=== PATIENT | female | born 1935 | race Caucasian/White ===

== ENCOUNTER → 2016-12-30 | Outpatient (CLI) | payer MEDICARE, MEDICAID ==
[~2016-12-30] MED LIST: AC325T PO; ACET650S13 PO; ACET650S15 PR; ACHD5005 PO; ALLP100T PO; AMLO5TAB2 PO; ASCO500T20 PO; ASP81CT PO; BSP10T PO; CARB1TAB22 PO; CHOL10002 PO; CITA10TA PO; CLON1TAB69 PO; DIVA125C3 PO; DOCU100C PO; DVL125C PO; FOLI1TAB6 PO; GUAI240S10 PO; LEVO750T6 PO; LORA0.5T34 PO; LORA10TA7 PO; LORA1TAB PO; LRZ1T PO; LVCR25100 PO; MULT1CAP27 PO; NF-LOVAZAC PO; OLAN2.5T19 PO; OLN2.5T PO; OMEG1CAP58 PO; OMG1KC PO; PROP10TA8 PO; PROP20TA5 PO; RIVA3CAP3 PO; RNT150T PO; ROPI0.5T2 PO; RPN.25T PO; SIMV10TA3 PO; SIMV20TA3 PO; SULF1TAB34 PO; TMSL.4C PO
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
[2016-12-30 13:12] LABS: BILIRUBIN,URINE NEGATIVE (NEGATIVE); KETONES,URINE NEGATIVE (NEGATIVE); LEUKOCYTE ESTERASE ,URINE 1+ (NEGATIVE); NITRITE,URINE POSITIVE (NEGATIVE); PH,URINE 5 (5-9); PROTEIN,URINE NEGATIVE (NEGATIVE); UROBILINOGEN,URINE NORMAL (NORMAL)
[2016-12-30 13:20] LABS: SQUAMOUS EPITHELIAL CELL,UR RARE /HPF
== END ==
PROVIDERS: ATTEND Internal Medicine
DX: R50.9 Fever, unspecified (principal); R82.90 Unspecified abnormal findings in urine
CPT/HCPCS: 81000; 87077; 87088; 87186; 87804

== ENCOUNTER 2017-01-03 07:58 | Emergency (ER) | payer MEDICARE, MEDICAID ==
[~2017-01-03] VITALS: Ht 160 cm; Wt 68.0 kg
--- NOTE | 2017-01-03 08:53 | Diagnostic Imaging Report ---
INDICATION: Left hip injury from a fall 2 views of the left hip show no fracture, dislocation or other acute abnormalities. IMPRESSION: Negative left hip. Dictated by: Dictated on workstation # [id number]
--- NOTE | 2017-01-03 08:54 | Diagnostic Imaging Report ---
INDICATION: Injury from falling out of a wheelchair. EXAMINATION: AP view pelvis The pelvic ring appears to be intact. Hips appear to be intact. There is some joint space narrowing in both hips slightly worse on the right than on the left. There is no acute fracture seen. IMPRESSION: No acute abnormalities in the pelvis. Dictated by: Dictated on workstation # [id number]
--- NOTE | 2017-01-03 08:58 | Diagnostic Imaging Report ---
PROCEDURE: CT head and CT cervical spine without contrast. TECHNIQUE: Multiple contiguous axial images were obtained through the brain and cervical spine without the use of intravenous contrast. Sagittal and coronal reformations through the cervical spine were then performed. INDICATION: Fall. Bruising to the right eye and right side of face. COMPARISON: 05/13/2015 FINDINGS: CT head: The ventricles and cortical sulci are diffusely prominent, compatible with age-related volume loss. There are confluent areas of abnormal, low attenuation in the periventricular white matter. This is consistent with chronic small vessel ischemic changes. Note is also made of multiple bilateral small basal ganglia lacunar infarcts. Overall, appearance does appear to have progressed when compared to prior exam. There is no midline shift or mass-effect. No acute intra-axial hemorrhage is seen. There are no abnormal areas of increased or decreased density to suggest acute hemorrhage or edema. No extra-axial masses or collections are present. The bony calvarium is intact. The visualized paranasal sinuses are unremarkable. The mastoid air cells are clear. CT cervical spine: There is straightening of normal lordotic curvature of the cervical spine. Findings may be on the basis of spasming or positioning. There is no significant anteroretrolisthesis. There is no evidence of jumped facets. Vertebral body heights are maintained. There is no evidence of acute fracture. No bony fragments are seen within the spinal canal. There are multilevel degenerative changes consisting of intervertebral disc height loss with anterior posterior disc osteophyte complex formations. These changes appear greatest at the C5-C6 level. Pre-and paravertebral soft tissue structures are unremarkable. Included portions of the lung apices are clear. IMPRESSION: 1. No acute intracranial abnormality. No CT evidence of mass, acute infarct or intracranial hemorrhage. 2. Bilateral small lacunar infarcts and chronic small vessel ischemic changes in deep white matter. Again, overall appearance appears to have progressed when compared to prior exam. 3. No CT evidence of acute fracture or dislocation of the cervical spine. 4. Multilevel degenerative changes of the cervical spine, which again appear greatest at C5-C6 level. Dictated by: Dictated on workstation # [id number]
--- NOTE | 2017-01-03 09:18 | ED Trauma-Multisystem ---
General Chief Complaint: Trauma-Non Activation Stated Complaint: FALL Nursing Triage Note: PT ARRIVED PER EMS, PT FELL OUT OF W/C AT NH. NO LOC NH REPORTS DROWSY,SLOW TO FOLLOW COMMANDS. PT CO OF FARMER AND L HIP PAIN TO NH. CO OF FARMER TO ED STAFF AND HAS ABRASION TO L KNEE. CLEANED AND BANDAID APPLIED Source of Information: Family Exam Limitations: No Limitations History of Present Illness Time Seen by Provider: 09:13 Initial Comments The patient is an 81-year-old residential patient. She is demented and non- ambulatory. She does stand to transfer to a wheelchair and spends her day in the wheelchair. This morning she fell while make this transfer. She apparently struck her forehead and also her left knee. She complains of left hip pain. She apparently fell last Sunday as well and has an eschar over her mid nose and a small ecchymosis at the nasal border of her right eye. Location Injury Occurred: NH Occurred: Just Prior to Arrival Pain/Injury Location: Face, Pelvis Method of Injury: Fall Allergies and Home Medications Allergies Coded Allergies: streptomycin (Unverified Allergy, Mild, 11/25/08) Home Medications Acetaminophen 325 Mg Tablet 650 MG PO Q4H PRN PRN PAIN/ELEVATED TEMP (Reported) TAKE 2 (325MG) NEEDED FOR PAIN/ELEVATED TEMP Acetaminophen 650 Mg Supp.rect 650 MG PA Q4H PRN PRN ELEVATED TEMPERATURE ( Reported) NEEDED FOR ELEVATED TEMPERATURE Ascorbic Acid 500 Mg Tablet 500 MG PO DAILY (Reported) Aspirin 81 Mg Chew 81 MG PO DAILY (Reported) Buspirone Hcl 10 Mg Tablet 10 MG PO QID (Reported) Cholecalciferol 1,000 Unit Tab 1,000 UNIT PO DAILY (Reported) Citalopram Hydrobromide 10 Mg Tablet 10 MG PO HS (Reported) Docusate Sodium 100 Mg Capsule 100 MG PO DAILY (Reported) Guaifenesin/D-Methorphan Hb 240 Ml Syrup 10 ML PO Q6H PRN PRN COUGH (Reported) 100-10MG/5ML NEEDED FOR COUGH Hydrocodone Bit/Acetaminophen 1 Tab Tab #60 1 TAB PO Q4H PRN PRN pain Prescribed by: LOVE TONEY on 05/08/14 0731 Levodopa/Carbidopa 1 Ea Tab 1 TAB PO QID (Reported) 25-100MG TABLET Loratadine 10 Mg Tablet 10 MG PO DAILY PRN PRN EXCESSIVE SECRETIONS (Reported) NEEDED FOR EXCESSIVE SECRETIONS Lorazepam 0.5 Mg Tablet 0.5 MG PO Q8H PRN PRN ANXIETY (Reported) NEEDED FOR ANXIETY Lorazepam 1 Mg Tab 1 MG PO BID (Reported) GIVE 1 TABLET FOR ANXIETY STATE Multivitamins 1 Each Capsule 1 TAB PO DAILY (Reported) Olanzapine 2.5 Mg Tablet 2.5 MG PO BID (Reported) [place] 3 Polyunsat Fatty Acids 1,000 Mg Cap 2,000 MG PO HS (Reported) TAKE 2 (1000MG) CAPSULE Propranolol Hcl 20 Mg Tablet 20 MG PO TID (Reported) HOLD FOR SBP <95 OR PULSE <55 Ranitidine Hcl 150 Mg Tablet 150 MG PO DAILY (Reported) Rivastigmine Tartrate 3 Mg Capsule 3 MG PO BID (Reported) Ropinirole Hcl 0.5 Mg Tablet 0.5 MG PO TID (Reported) Simvastatin 10 Mg Tablet 10 MG PO HS (Reported) Sulfamethoxazole/Trimethoprim 1 Each Tablet 1 EACH PO MON,SUN,SUN (Reported) 400-80MG TABLET Tamsulosin Hcl 0.4 Mg Cap 0.4 MG PO DAILY (Reported) Constitutional: weakness Eyes: No Symptoms Reported Ears: No Symptoms Reported Nose: No Symptoms Reported Mouth: No Symptoms Reported Throat: No Symptoms to Report Respiratory: no symptoms reported Cardiovascular: No Symptoms Reported Gastrointestinal: no symptoms reported Genitourinary: no symptoms reported Musculoskeletal: see HPI Skin: no symptoms reported Psychiatric/Neurological: No Symptoms Reported Past Anrvfdg-Sztcfz-Lktdte Hx Patient Social History Alcohol Use: Denies Use Recreational Drug Use: No Smoking Status: Never a Smoker Recent Foreign Travel: No Contact w/Someone Who Travel: No Recent Infectious Disease Expo: No Recent Hopitalizations: No Immunizations Up To Date Tetanus Booster (TDap): Less than 5yrs PED Vaccines UTD: No Date of Pneumonia Vaccine: Aug 20, 2013 Date of Influenza Vaccine: Jul 27, 2011 Surgeries HX Surgeries: Yes Respiratory Hx Respiratory Disorders: No Cardiovascular Hx Cardiac Disorders: Yes (HYPERLIPIDEMIA) Neurological Hx Neurological Disorders: Yes Reproductive System Hx Reproductive Disorders: No Sexually Transmitted Disease: No HIV/AIDS: No Female Reproductive Disorders: Denies Genitourinary Hx Genitourinary Disorders: Yes (INCONTINENCE/FREQUENCY) Gastrointestinal Hx Gastrointestinal Disorders: Yes Gastrointestinal Disorders: Chronic Constipation Musculoskeletal Hx Musculoskeletal Disorders: Yes (ARTHRITIS/GOUT) Musculoskeletal Disorders: Arthritis, Gout Endocrine Hx Endocrine Disorders: Yes (HYPOGLYCEMIA) HEENT HX ENT Disorders: No Cancer Hx Cancer: No Psychosocial Hx Psychiatric Problems: Yes (PARANOID SCHIZO) Behavioral Health Disorders: Anxiety, Schizophrenia, Depression Integumentary HX Skin/Integumentary Disorder: No Blood Transfusions Hx Blood Disorders: No Adverse Reaction to a Blood Tr: No Family Medical History Family Medial History: Patient reports no known family medical history. Physical Exam Vital Signs Vital Sign - Last 12Hours 01/03/17 08:00 Temp 99.1 Pulse 73 Resp 18 B/P 107/62 Pulse Ox 96 O2 Delivery Room Air Temperature (Fahrenheit): 99.1 General Appearance: No Apparent Distress WD/WN Head: Other (hematoma without color over the right brow. It is tender to touch. There is an abrasion with eschar in the mid nose. There is a small ecchymosis at the nasal border of the right eye) Eyes: Bilateral Eye Normal Inspection Ears, Nose, Throat: Hearing Grossly Normal Neck: Normal Inspection Cardiovascular: Regular Rate, Rhythm No Edema No Gallop No JVD No Murmur Normal Peripheral Pulses Respiratory: Chest Non Tender Lungs Clear Normal Breath Sounds No Accessory Muscle Use No Respiratory Distress Gastrointestinal: Normal Bowel Sounds No Organomegaly No Pulsatile Mass Non Tender Soft Back: Normal Inspection Extremity: Other Neurologic/Psychiatric: Alert Melvina Coma Score Best Eye Response (Melvina): (4) Open Spontaneously Best Verbal Response (Melvina): (5) Oriented Best Motor Response (Melvina): (6) Obeys Commands Progress/Results/Core Measures Results/Orders My Orders Orders-GABI GHOSH MD Ct Head/Cervical Spine Wo (01/03/17 08:19) Pelvis (01/03/17 08:19) Hip, Left, 2 Views (01/03/17 08:19) Vital Signs/I&O Vital Sign - Last 12Hours 01/03/17 08:00 Temp 99.1 Pulse 73 Resp 18 B/P 107/62 Pulse Ox 96 O2 Delivery Room Air Blood Pressure Mean: 77 Departure Communication Progress Notes CT scan of the head shows lacunar infarcts which appeared to have progressed since the previous CT. No new abnormalities are noted. The pelvis and left hip are negative for fractures. The cervical spine on CT shows advanced arthritic abnormalities but no acute injury. Impression Impression: Primary Impression: fall Additional Impression: brow hematoma Disposition: 01 HOME, SELF-CARE Condition: Stable/Unchanged Departure-Patient Inst. Referrals: LOVE TONEY MD (PCP/Family) Primary Care Physician Patient Instructions: Minor Head Injury (DC) Add. Discharge Instructions: All discharge instructions reviewed with patient and/or family. Voiced understanding. Observe for change in level of consciousness. The patient should have help in transferring from bed to wheelchair GABI GHOSH MD Jan 03, 2017 09:18
[2017-01-03 09:34] VITALS: BP 110/62
== END 2017-01-03 09:34 | disposition home or self-care (01) ==
LOC: EDUNIT# 07:58 → ER 08:00
DX: S00.83XA Contusion of other part of head, initial encounter (principal); S80.212A Abrasion, left knee, initial encounter; M47.812 Spondylosis without myelopathy or radiculopathy, cervical region; F03.90 Unspecified dementia, unspecified severity, without behavioral disturbance, psychotic disturbance, mood disturbance, and anxiety; Z79.82 Long term (current) use of aspirin; Z79.899 Other long term (current) drug therapy; W05.0XXA Fall from non-moving wheelchair, initial encounter; Y92.129 Unspecified place in nursing home as the place of occurrence of the external cause; Y99.8 Other external cause status
CPT/HCPCS: 70450; 72125; 72170; 73502; 99283

== ENCOUNTER → 2019-01-03 | Outpatient (CLI) | payer MEDICARE, MEDICAID ==
[2019-01-03 19:17] LABS: BILIRUBIN,URINE NEGATIVE (NEGATIVE); CLARITY,URINE CLEAR; COLOR,URINE YELLOW; GLUCOSE, URINE (UA) NEGATIVE (NEGATIVE); KETONES,URINE NEGATIVE (NEGATIVE); LEUKOCYTE ESTERASE ,URINE 3+ (NEGATIVE); NITRITE,URINE NEGATIVE (NEGATIVE); PH,URINE 6 (5-9); PROTEIN,URINE NEGATIVE (NEGATIVE); UROBILINOGEN,URINE NORMAL (NORMAL)
[2019-01-03 19:32] LABS: BACTERIA,URINE TRACE /HPF; RBC,URINE RARE /HPF
== END ==
PROVIDERS: ATTEND Internal Medicine
DX: M62.81 Muscle weakness (generalized) (principal); R82.998 Other abnormal findings in urine; Z87.440 Personal history of urinary (tract) infections
CPT/HCPCS: 81000; 87088

== ENCOUNTER 2019-08-07 10:42 | Emergency (ER) | payer MEDICARE, MEDICAID ==
[~2019-08-07] VITALS: Ht 167 cm; Wt 81.0 kg
--- NOTE | 2019-08-07 10:55 | ED General ---
General Chief Complaint: Altered Mental Status Stated Complaint: "NOT ACTING RIGHT" Source of Information: EMS Exam Limitations: No Limitations History of Present Illness Date Seen by Provider: Aug 07, 2019 Time Seen by Provider: 10:54 Initial Comments To ER per EMS from local [facility] with reports of behavioral changes. There was questionable right facial droop. Slurred speech but [facility] staff reports that the slurred speech is her baseline. Severity: Mild Associated Systoms: Denies Symptoms Allergies and Home Medications Allergies Coded Allergies: streptomycin (Unverified Allergy, Mild, 11/25/08) Home Medications Acetaminophen 325 Mg Tablet, 650 MG PO Q4H PRN for PAIN/ELEVATED TEMP, (Repo rted) TAKE 2 (325MG) NEEDED FOR PAIN/ELEVATED TEMP Acetaminophen 650 Mg Supp.rect, 650 MG PA Q4H PRN for ELEVATED TEMPERATURE, (Reported) NEEDED FOR ELEVATED TEMPERATURE Ascorbic Acid 500 Mg Tablet, 500 MG PO DAILY, (Reported) Aspirin 81 Mg Chew, 81 MG PO DAILY, (Reported) Buspirone Hcl 10 Mg Tablet, 10 MG PO QID, (Reported) Cholecalciferol 1,000 Unit Tab, 1,000 UNIT PO DAILY, (Reported) Citalopram Hydrobromide 10 Mg Tablet, 10 MG PO HS, (Reported) Docusate Sodium 100 Mg Capsule, 100 MG PO DAILY, (Reported) Guaifenesin/D-Methorphan Hb 240 Ml Syrup, 10 ML PO Q6H PRN for COUGH, (Reported) 100-10MG/5ML NEEDED FOR COUGH Hydrocodone Bit/Acetaminophen 1 Tab Tab, 1 TAB PO Q4H PRN for pain Prescribed by: LOVE TONEY on 05/08/14 0731 Levodopa/Carbidopa 1 Ea Tab, 1 TAB PO QID, (Reported) 25-100MG TABLET Loratadine 10 Mg Tablet, 10 MG PO DAILY PRN for EXCESSIVE SECRETIONS, (Reported) NEEDED FOR EXCESSIVE SECRETIONS Lorazepam 0.5 Mg Tablet, 0.5 MG PO Q8H PRN for ANXIETY, (Reported) NEEDED FOR ANXIETY Lorazepam 1 Mg Tab, 1 MG PO BID, (Reported) GIVE 1 TABLET FOR ANXIETY STATE Multivitamins 1 Each Capsule, 1 TAB PO DAILY, (Reported) Olanzapine 2.5 Mg Tablet, 2.5 MG PO BID, (Reported) [place] 3 Polyunsat Fatty Acids 1,000 Mg Cap, 2,000 MG PO HS, (Reported) TAKE 2 (1000MG) CAPSULE Propranolol Hcl 20 Mg Tablet, 20 MG PO TID, (Reported) HOLD FOR SBP <95 OR PULSE <55 Ranitidine Hcl 150 Mg Tablet, 150 MG PO DAILY, (Reported) Rivastigmine Tartrate 3 Mg Capsule, 3 MG PO BID, (Reported) Ropinirole Hcl 0.5 Mg Tablet, 0.5 MG PO TID, (Reported) Simvastatin 10 Mg Tablet, 10 MG PO HS, (Reported) Sulfamethoxazole/Trimethoprim 1 Each Tablet, 1 EACH PO MON,WED,FRI, (Reported) 400-80MG TABLET Tamsulosin Hcl 0.4 Mg Cap, 0.4 MG PO DAILY, (Reported) Patient Home Medication List Home Medication List Reviewed: Yes Review of Systems Review of Systems Constitutional: see HPI, other (unable to obtain) EENTM: see HPI Respiratory: no symptoms reported Cardiovascular: no symptoms reported Genitourinary: no symptoms reported Musculoskeletal: no symptoms reported Skin: no symptoms reported Psychiatric/Neurological: No Symptoms Reported Hematologic/Lymphatic: No Symptoms Reported Immunological/Allergic: no symptoms reported Past Kvwjeqx-Ykzggb-Djynjc Hx Patient Social History Recent Hopitalizations: No Immunizations Up To Date Tetanus Booster (TDap): Less than 5yrs PED Vaccines UTD: No Date of Pneumonia Vaccine: Aug 20, 2013 Date of Influenza Vaccine: Jul 27, 2011 Past Medical History Reproductive Disorders: No Female Reproductive Disorders: Denies Sexually Transmitted Disease: No HIV/AIDS: No Chronic Constipation Arthritis, Gout Anxiety, Schizophrenia, Depression Adverse Reaction/Blood Tranf: No Family Medical History Patient reports no known family medical history. Physical Exam Vital Signs Vital Signs - First Documented 08/07/19 10:49 Temp 36.3 Pulse 72 Resp 17 Pulse Ox 96 O2 Delivery Nasal Cannula O2 Flow Rate 2.00 Capillary Refill : Height, Weight, BMI Height: 5'3" Weight: 150lbs. 0.0oz. [id number]; BMI Method:Estimated General Appearance: No Apparent Distress, WD/WN Eyes: Bilateral Eye Normal Inspection, Bilateral Eye PERRL, Bilateral Eye EOMI Neck: Full Range of Motion, Normal Inspection Respiratory: No Accessory Muscle Use, No Respiratory Distress Cardiovascular: Regular Rate, Rhythm, Normal Peripheral Pulses Gastrointestinal: Normal Bowel Sounds, Non Tender, Soft Extremity: Normal Capillary Refill, Normal Inspection Neurologic/Psychiatric: Alert Skin: Normal Color, Warm/Dry Progress/Results/Core Measures Suspected Sepsis SIRS Temperature: Pulse: Respiratory Rate: Laboratory Tests 08/07/19 10:46: White Blood Count 3.6L Blood Pressure / Mean: Laboratory Tests 08/07/19 10:46: Creatinine 0.75, Platelet Count 168, Total Bilirubin 0.4 Results/Orders Lab Results Laboratory Tests Test 08/07/19 10:46 08/07/19 11:03 Range/Units White Blood Count 3.6 L 4.3-11.0 10^3/uL Red Blood Count 3.99 L 4.35-5.85 10^6/uL Hemoglobin 12.7 11.5-16.0 G/DL Hematocrit 37 35-52 % Mean Corpuscular Volume 92 80-99 FL Mean Corpuscular Hemoglobin 32 25-34 PG Mean Corpuscular Hemoglobin Concent 35 32-36 G/DL Red Cell Distribution Width 12.4 10.0-14.5 % Platelet Count 168 130-400 10^3/uL Mean Platelet Volume 9.8 7.4-10.4 FL Neutrophils (%) (Auto) 34 L 42-75 % Lymphocytes (%) (Auto) 47 H 12-44 % Monocytes (%) (Auto) 17 H 0-12 % Eosinophils (%) (Auto) 2 0-10 % Basophils (%) (Auto) 1 0-10 % Neutrophils # (Auto) 1.2 L 1.8-7.8 X 10^3 Lymphocytes # (Auto) 1.7 1.0-4.0 X 10^3 Monocytes # (Auto) 0.6 0.0-1.0 X 10^3 Eosinophils # (Auto) 0.1 0.0-0.3 10^3/uL Basophils # (Auto) 0.0 0.0-0.1 10^3/uL Sodium Level 139 135-145 MMOL/L Potassium Level 4.2 3.6-5.0 MMOL/L Chloride Level 106 98-107 MMOL/L Carbon Dioxide Level 25 21-32 MMOL/L Anion Gap 8 5-14 MMOL/L Blood Urea Nitrogen 12 7-18 MG/DL Creatinine 0.75 0.60-1.30 MG/DL Estimat Glomerular Filtration Rate > 60 BUN/Creatinine Ratio 16 Glucose Level 110 H 70-105 MG/DL Calcium Level 9.5 8.5-10.1 MG/DL Corrected Calcium 9.5 8.5-10.1 MG/DL Total Bilirubin 0.4 0.1-1.0 MG/DL Aspartate Amino Transf (AST/SGOT) 22 5-34 U/L Alanine Aminotransferase (ALT/SGPT) 6 0-55 U/L Alkaline Phosphatase 63 40-136 U/L B-Type Natriuretic Peptide 41.1 <100.0 PG/ML Total Protein 6.7 6.4-8.2 GM/DL Albumin 4.0 3.2-4.5 GM/DL Urine Color YELLOW Urine Clarity CLEAR Urine pH 7 5-9 Urine Specific Whick 1.010 L 1.016-1.022 Urine Protein NEGATIVE NEGATIVE Urine Glucose (UA) NEGATIVE NEGATIVE Urine Ketones NEGATIVE NEGATIVE Urine Nitrite NEGATIVE NEGATIVE Urine Bilirubin NEGATIVE NEGATIVE Urine Urobilinogen NORMAL NORMAL MG/DL Urine Leukocyte Esterase 1+ H NEGATIVE Urine RBC (Auto) NEGATIVE NEGATIVE Urine RBC NONE /HPF Urine WBC NONE /HPF Urine Squamous Epithelial Cells RARE /HPF Urine Crystals NONE /LPF Urine Bacteria NEGATIVE /HPF Urine Casts NONE /LPF Urine Mucus NEGATIVE /LPF Urine Culture Indicated NO My Orders Orders - HENRY CASTRO APRN Cbc With Automated Diff (08/07/19 10:52) Comprehensive Metabolic Panel (08/07/19 10:52) Ua Culture If Indicated (08/07/19 10:52) Straight Cath (Urinary) (08/07/19 10:52) Chest 1 View, Ap/Pa Only (08/07/19 10:52) Ct Head Wo (08/07/19 10:52) Ekg Tracing (08/07/19 10:52) Ct Angio Chest W (08/07/19 12:07) Iohexol Injection (Omnipaque 350 Mg/Ml 1 (08/07/19 12:15) Received Contrast (Hold Metformin- Contr (08/07/19 12:15) Sodium Chloride Flush (Catheter Flush Sy (08/07/19 12:15) Ns (Ivpb) (Sodium Chloride 0.9% Ivpb Bag (08/07/19 12:15) BNP (08/07/19 12:33) Medications Given in ED Current Medications Medications Dose Ordered Sig/Marti Route Start Time Stop Time Status Last Admin Dose Admin Iohexol 100 ml ONCE ONCE IV 08/07/19 12:15 08/07/19 12:16 DC 08/07/19 12:26 71 ML Sodium Chloride 100 ml ONCE ONCE IV 08/07/19 12:15 08/07/19 12:16 DC 08/07/19 12:26 80 ML Vital Signs/I&O 08/07/19 10:49 Temp 36.3 Pulse 72 Resp 17 B/P (MAP) Pulse Ox 96 O2 Delivery Nasal Cannula O2 Flow Rate 2.00 Capillary Refill : Departure Impression Primary Impression: General medical exam Disposition: HOME, SELF-CARE Condition: Stable Departure-Patient Inst. Decision time for Depature: 13:20 Referrals: LOVE TONEY MD (PCP/Family) Primary Care Physician Patient Instructions: NO INSTRUCTIONS GIVEN HENRY CASTRO PAINTER PLATE Aug 07, 2019 10:55
[2019-08-07 11:03] LABS: BASOPHILS % (AUTO) 1 % (0-10); EOSINOPHILS # (AUTO) 0.1 10^3/uL (0.0-0.3); EOSINOPHILS % (AUTO) 2 % (0-10); HEMATOCRIT 37 % (35-52); HEMOGLOBIN 12.7 G/DL (11.5-16.0); LYMPHOCYTES # (AUTO) 1.7 X 10^3 (1.0-4.0); LYMPHOCYTES % (AUTO) 47 % (12-44); MEAN CORPUSCULAR HEMOGLOBIN 32 PG (25-34); MEAN CORPUSCULAR HGB CONC 35 G/DL (32-36); MEAN CORPUSCULAR VOLUME 92 FL (80-99); MEAN PLATELET VOLUME 9.8 FL (7.4-10.4); MONOCYTES # (AUTO) 0.6 X 10^3 (0.0-1.0); MONOCYTES % (AUTO) 17 % (0-12); NEUTROPHILS # (AUTO) 1.2 X 10^3 (1.8-7.8); NEUTROPHILS % (AUTO) 34 % (42-75); PLATELET COUNT 168 10^3/uL (130-400); RED CELL DISTRIBUTION WIDTH 12.4 % (10.0-14.5); WHITE BLOOD COUNT 3.6 10^3/uL (4.3-11.0)
[2019-08-07 11:18] LABS: BILIRUBIN,URINE NEGATIVE (NEGATIVE); CLARITY,URINE CLEAR; COLOR,URINE YELLOW; GLUCOSE, URINE (UA) NEGATIVE (NEGATIVE); KETONES,URINE NEGATIVE (NEGATIVE); LEUKOCYTE ESTERASE ,URINE 1+ (NEGATIVE); NITRITE,URINE NEGATIVE (NEGATIVE); PH,URINE 7 (5-9); PROTEIN,URINE NEGATIVE (NEGATIVE); UROBILINOGEN,URINE NORMAL (NORMAL)
[2019-08-07 11:27] LABS: ALANINE AMINOTRANSFERASE 6 U/L (0-55); ALKALINE PHOSPHATASE 63 U/L (40-136); BILIRUBIN,TOTAL 0.4 MG/DL (0.1-1.0); BUN/CREATININE RATIO 16; CALCIUM 9.5 MG/DL (8.5-10.1); CARBON DIOXIDE 25 MMOL/L (21-32); CHLORIDE 106 MMOL/L (98-107); CREATININE SERUM 0.75 MG/DL (0.60-1.30); GFR ESTIMATED > 60; GLUCOSE 110 MG/DL (70-105); POTASSIUM 4.2 MMOL/L (3.6-5.0); SODIUM 139 MMOL/L (135-145); TOTAL PROTEIN 6.7 GM/DL (6.4-8.2)
[2019-08-07 11:30] LABS: BACTERIA,URINE NEGATIVE /HPF; SQUAMOUS EPITHELIAL CELL,UR RARE /HPF
--- NOTE | 2019-08-07 11:47 | Diagnostic Imaging Report ---
PROCEDURE: CT head without contrast. TECHNIQUE: Multiple contiguous axial images were obtained through the brain without the use of intravenous contrast. Auto Exposure Controls were utilized during the CT exam to meet ALARA standards for radiation dose reduction. INDICATION: Right-sided weakness. Correlation is made with prior head CT from 01/03/2017. Ventricles and sulci are appropriate for the patient's age. Moderate periventricular hypodensity is noted consistent with senescent change. No sulcal effacement or midline shift is identified. No acute intra-axial or extra-axial hemorrhage is detected. Cisterns are patent. Visualized paranasal sinuses are clear. IMPRESSION: Senescent changes. No acute intracranial process is detected. Dictated by: Dictated on workstation # [id number]
[2019-08-07] MEDS ORDERED: CATHETER FLUSH 10 ML SYR IV PRN (12:15)
[2019-08-07] MEDS ORDERED: NS 100 ML (IVPB) BAG IV ONE (12:15)
[2019-08-07] MEDS ORDERED: IOHEXOL 350 MG/ML 100 ML (OMNIPAQUE 350) VIAL IV ONE (12:15)
[2019-08-07] MEDS ORDERED: HOLD METFORMIN - RECEIVED CONTRAST 20 ML VIAL IV SCH (12:15)
--- NOTE | 2019-08-07 12:19 | Diagnostic Imaging Report ---
Patient History: Altered mental status. Technique: Single frontal view of the chest Comparison: 08/01/2015 FINDINGS: The lung volumes are decreased with patchy bibasilar opacities. No focal consolidation is seen. No large pleural effusion or pneumothorax is seen. The cardiac silhouette is normal in size. There is prominence of the central pulmonary vasculature. No acute osseous abnormality is seen. IMPRESSION: 1. Prominence of the central pulmonary vasculature, which may represent congestion. No overt pulmonary edema. 2. Bibasilar opacities favored to represent atelectasis. Dictated by: Dictated on workstation # [id number]
--- NOTE | 2019-08-07 12:47 | Diagnostic Imaging Report ---
PROCEDURE: CT angiography Chest TECHNIQUE: After intravenous administration of contrast, thin section axial CT angiography of the chest was performed. 3D MIP reconstructions were made. All CT scans use one or more of the following dose optimizing techniques: automated exposure control, MA and/or KvP adjustment based on a patient size and exam type, or iterative reconstruction. INDICATION: Dyspnea. Altered mental status. COMPARISON: Portable chest of 08/07/2019. FINDINGS: Vasculature: No pulmonary emboli. No CT evidence of pulmonary hypertension or right ventricular strain. Thoracic aorta is normal in caliber. Normal caliber thoracic aorta does not have features of dissection Heart and mediastinum: Visualized thyroid is normal. No supraclavicular, axillary, or intra-thoracic lymphadenopathy. Heart is borderline enlarged without pericardial effusion. Coronary artery calcifications are present. Pleura: No pleural effusion or pneumothorax. Lungs and airway: No endoluminal lesion in the trachea or central bronchi. Minimal smooth interlobular septal thickening in the lung bases and lung apices. Patchy groundglass opacities are also noted within the bilateral upper and lower lobes. Upper abdomen: Allowing for the phase of contrast, no acute abnormality in the upper abdomen is seen. Musculoskeletal: No concerning osseous lesion. IMPRESSION: 1. No pulmonary emboli or acute aortic syndrome. 2. Potential mild interstitial pulmonary edema. No pleural effusions. 3. Cardiomegaly. Dictated by: Dictated on workstation # [id number]
[2019-08-07 14:02] VITALS: BP 118/62
== END 2019-08-07 14:02 | disposition home or self-care (01) ==
LOC: EDUNIT# 10:42 → ER 10:43
DX: F91.8 Other conduct disorders (principal); R29.810 Facial weakness; R47.81 Slurred speech; Z88.1 Allergy status to other antibiotic agents; Z79.82 Long term (current) use of aspirin
CPT/HCPCS: 36415; 70450; 71045; 71275; 80053; 81000; 83880; 85025; 93005

== ENCOUNTER → 2019-12-05 | Outpatient (CLI) | payer MEDICARE, MEDICAID ==
[~2019-12-05] VITALS: Ht 160 cm; Wt 73.0 kg
[~2019-12-05] MED LIST changes: +CATHETER FLUSH 10 ML SYR IV PRN; +REGADENOSON 0.4 MG/5 ML SYR (LEXISCAN) IV ONE
[2019-12-05 08:08] VITALS: BP 137/93
--- NOTE | 2019-12-09 15:48 | STRESS TEST ---
DATE OF SERVICE: 12/05/2019 RESTING AND POST REGADENOSON TECHNETIUM-99M TETROFOSMIN SPECT CT IMAGING ORDERING PHYSICIAN: Dr. Sullivan. PRIMARY PHYSICIAN: Dr. Bryant. CLINICAL DIAGNOSES: Chest pain, hyperlipidemia, hypertension. Baseline images were carried out after injection of 10.59 mCi of technetium-99m Tetrofosmin. This was followed by 0.4 mg regadenoson and 29.9 mCi of technetium-99m Tetrofosmin for stress imaging. The electrocardiogram showed sinus rhythm at baseline. The electrocardiogram did not change significantly with regadenoson infusion. A few isolated premature ventricular contraction was seen on this study. Review of images at rest and following stress does not indicate any significant perfusion defects consistent with myocardial ischemia or infarction. Gated images show normal global left ventricular systolic function with normal regional wall motion. Left ventricular ejection fraction is calculated to be 74%. Left ventricular end diastolic volume is 27 mL. TID is absent (1). CONCLUSIONS: 1. No evidence of any significant myocardial ischemia or infarction on this study. 2. Normal regional wall motion. 3. Normal global left ventricular systolic function with a calculated ejection fraction of 74%. Job ID: [id number] DocumentID: [id number] Dictated Date: 12/09/2019 12:39:18 Television Repairer Date: 12/09/2019 15:47:56 Dictated By: JOSE SULLIAVN MD, MA, FACP, FACC,
== END ==
LOC: CARD 06:59
PROVIDERS: ATTEND Internal Medicine Cardiovascular Disease
DX: R07.9 Chest pain, unspecified (principal); E78.5 Hyperlipidemia, unspecified; I10 Essential (primary) hypertension; I63.9 Cerebral infarction, unspecified; I65.23 Occlusion and stenosis of bilateral carotid arteries
CPT/HCPCS: 78452; 93017

== ENCOUNTER → 2021-06-10 | Outpatient (CLI) | payer MEDICARE, MEDICAID ==
[~2021-06-10] MED LIST changes: -CATHETER FLUSH 10 ML SYR IV PRN; -REGADENOSON 0.4 MG/5 ML SYR (LEXISCAN) IV ONE
[2021-06-10 07:03] LABS: ABSOLUTE RETIC # 104 10e9/uL (24-90); BASOPHILS # (AUTO) 0.1 10^3/uL (0.0-0.1); BASOPHILS % (AUTO) 1 % (0-10); EOSINOPHILS # (AUTO) 0.1 10^3/uL (0.0-0.3); EOSINOPHILS % (AUTO) 3 % (0-10); HEMATOCRIT 38 % (35-52); HEMOGLOBIN 13.1 g/dL (11.5-16.0); LYMPHOCYTES # (AUTO) 2.2 10^3/uL (1.0-4.0); LYMPHOCYTES % (AUTO) 51 % (12-44); MEAN CORPUSCULAR HEMOGLOBIN 32 pg (25-34); MEAN CORPUSCULAR HGB CONC 34 g/dL (32-36); MEAN CORPUSCULAR VOLUME 93 fL (80-99); MEAN PLATELET VOLUME 9.7 fL (9.0-12.2); MONOCYTES # (AUTO) 0.6 10^3/uL (0.0-1.0); MONOCYTES % (AUTO) 15 % (0-12); NEUTROPHILS # (AUTO) 1.2 10^3/uL (1.8-7.8); NEUTROPHILS % (AUTO) 29 % (42-75); PLATELET COUNT 206 10^3/uL (130-400); RETICULOCYTE % 2.53 % (0.50-2.40); WHITE BLOOD COUNT 4.2 10^3/uL (4.3-11.0)
[2021-06-10 08:29] LABS: ATYPICAL LYMPHOCYTES 2 %; BASOPHILS % (MANUAL) 1 %; EOSINOPHILS % (MANUAL) 4 %; HYPOCHROMASIA SLIGHT; LYMPHOCYTES % (MANUAL) 52 %; MONOCYTES % (MANUAL) 12 %; NEUTROPHILS % (MANUAL) 29 %
[2021-06-10 08:30] LABS: MICROCYTOSIS SLIGHT
== END ==
LOC: LABNPT 06:53
PROVIDERS: ATTEND Internal Medicine
DX: D72.819 Decreased white blood cell count, unspecified (principal)
CPT/HCPCS: 85007; 85027; 85045; 85055

== ENCOUNTER → 2021-06-16 | Outpatient (CLI) | payer MEDICARE, MEDICAID ==
[2021-06-16 10:06] LABS: ABSOLUTE RETIC # 114 10e9/uL (24-90); BASOPHILS % (AUTO) 1 % (0-10); EOSINOPHILS # (AUTO) 0.1 10^3/uL (0.0-0.3); EOSINOPHILS % (AUTO) 2 % (0-10); HEMATOCRIT 39 % (35-52); HEMOGLOBIN 13.3 g/dL (11.5-16.0); LYMPHOCYTES # (AUTO) 2.4 10^3/uL (1.0-4.0); LYMPHOCYTES % (AUTO) 48 % (12-44); MEAN CORPUSCULAR HEMOGLOBIN 32 pg (25-34); MEAN CORPUSCULAR HGB CONC 34 g/dL (32-36); MEAN CORPUSCULAR VOLUME 95 fL (80-99); MEAN PLATELET VOLUME 9.9 fL (9.0-12.2); MONOCYTES # (AUTO) 0.8 10^3/uL (0.0-1.0); MONOCYTES % (AUTO) 17 % (0-12); NEUTROPHILS # (AUTO) 1.6 10^3/uL (1.8-7.8); NEUTROPHILS % (AUTO) 32 % (42-75); PLATELET COUNT 205 10^3/uL (130-400); RETICULOCYTE % 2.76 % (0.50-2.40); WHITE BLOOD COUNT 4.9 10^3/uL (4.3-11.0)
[2021-06-16 10:34] LABS: BASOPHILS % (MANUAL) 2 %; EOSINOPHILS % (MANUAL) 2 %; LYMPHOCYTES % (MANUAL) 44 %; MONOCYTES % (MANUAL) 13 %; NEUTROPHILS % (MANUAL) 39 %; RBC MORPH NORMAL
== END ==
LOC: LABNPT 09:32
PROVIDERS: ATTEND Internal Medicine
DX: D72.819 Decreased white blood cell count, unspecified (principal)
CPT/HCPCS: 85007; 85027; 85045; 85055

== ENCOUNTER 2022-08-20 12:20 | Emergency (ER) | payer MEDICARE, MEDICAID ==
--- NOTE | 2022-08-20 12:28 | ED Fall/Injury ---
General Chief Complaint: Trauma-Non Activation Stated Complaint: FALL Source: patient, family, EMS, care home records History of Present Illness Date Seen by Provider: Aug 20, 2022 Time Seen by Provider: 12:20 Initial Comments Patient is a 87 yo F who presents to the ED via EMS after a mechanical fall from a wheelchair resulting in her striking her forehead against the ground. She did not have any reported LOC. She did sustain a superficial abrasion to the forehead. Patient has a h/o dementia and is at her baseline per her daughter. Staff at patient's care home states patient was being pushed in her wh eelchair when she got her foot caught in the wheel causing her to be thrown forward. EMS state patient was stable en route. Location Injury Occurred: care home Occurred: just prior to arrival Severity: mild Injuries/Pain Location: head Context: other (got foot caught in wheelchair) Loss of Consciousness: no loss of consciousness Allergies and Home Medications Allergies Coded Allergies: streptomycin (Unverified Allergy, Mild, 11/25/08) Patient Home Medication List Home Medication List Reviewed: Yes Acetaminophen (Tylenol) 325 Mg Tablet, 650 MG PO Q4H PRN for PAIN/ELEVATED TEMP, (Reported) Entered as Reported by: MERRY SONG on 01/18/12 0245 Acetaminophen (Acetaminophen) 650 Mg Supp.rect, 650 MG [place] Q4H PRN for ELEVATED TEMPERATURE, (Reported) Entered as Reported by: DELIA VENCES on 05/06/14910 Ascorbic Acid (Vitamin C 500 Mg) 500 Mg Tablet, 500 MG PO DAILY, (Reported) Entered as Reported by: MERRY SONG on 01/18/12 0242 Aspirin (Aspirin 81 Mg Chew Tab) 81 Mg Chew, 81 MG PO DAILY, (Reported) Entered as Reported by: MARCI PORTILLO on 01/17/122013 Buspirone Hcl (Buspar) 10 Mg Tablet, 10 MG PO QID, (Reported) Entered as Reported by: MARCI PORTILLO on 01/17/122013 Cholecalciferol (Vitamin D3 Tablet) 1,000 Unit Tab, 1,000 UNIT PO DAILY, (Reported) Entered as Reported by: DELIA VENCES on 05/06/14910 Citalopram Hydrobromide (Citalopram Hbr) 10 Mg Tablet, 10 MG PO HS, (Reported) Entered as Reported by: DELIA VENCES on 05/06/14910 Docusate Sodium (Docusate Calcium) 100 Mg Capsule, 100 MG PO DAILY, (Reported) Entered as Reported by: MARCI PORTILLO on 01/17/122013 Guaifenesin/D-Methorphan Hb (Tussin Dm Clear) 240 Ml Syrup, 10 ML PO Q6H PRN for COUGH, (Reported) Entered as Reported by: DELIA VENCES on 05/06/14910 Hydrocodone Bit/Acetaminophen (Lortab 5 Mg Tablet) 1 Tab Tab, 1 TAB PO Q4H PRN for pain Prescribed by: LOVE TONEY on 05/08/14730 Levodopa/Carbidopa (Sinemet 25/100) 1 Ea Tab, 1 TAB PO QID, (Reported) Entered as Reported by: MERRY SONG on 01/18/12241 Loratadine (Loratadine) 10 Mg Tablet, 10 MG PO DAILY PRN for EXCESSIVE SECRETIONS, (Reported) Entered as Reported by: MARCI PORTILLO on 01/17/122013 Lorazepam (Ativan) 0.5 Mg Tablet, 0.5 MG PO Q8H PRN for ANXIETY, (Reported) Entered as Reported by: DELIA VENCES on 05/06/14910 Lorazepam (Ativan) 1 Mg Tab, 1 MG PO BID, (Reported) Entered as Reported by: DELIA VENCES on 05/06/14920 Multivitamins (Multivitamins) 1 Each Capsule, 1 TAB PO DAILY, (Reported) Entered as Reported by: MERRY SONG on 01/18/12241 Olanzapine (Olanzapine) 2.5 Mg Tablet, 2.5 MG PO BID, (Reported) Entered as Reported by: TARA NUNEZ on 05/06/14619 [place] 3 Polyunsat Fatty Acids (Fish Oil) 1,000 Mg Cap, 2,000 MG PO HS, (Reported) Entered as Reported by: DELIA VENCES on 05/06/14910 Propranolol Hcl (Propranolol Hcl) 20 Mg Tablet, 20 MG PO TID, (Reported) Entered as Reported by: DELIA VENCES on 05/06/14920 Ranitidine Hcl (Zantac 150 Mg) 150 Mg Tablet, 150 MG PO DAILY, (Reported) Entered as Reported by: TARA NUNEZ on 05/06/14 06 Rivastigmine Tartrate (Exelon) 3 Mg Capsule, 3 MG PO BID, (Reported) Entered as Reported by: TARA NUNEZ on 05/06/14 06 Ropinirole Hcl (Ropinirole Hcl) 0.5 Mg Tablet, 0.5 MG PO TID, (Reported) Entered as Reported by: DELIA VENCES on 05/06/14 09 Simvastatin (Simvastatin) 10 Mg Tablet, 10 MG PO HS, (Reported) Entered as Reported by: DELIA VENCES on 05/06/14 09 Sulfamethoxazole/Trimethoprim (Bactrim 400-80 Mg Tablet) 1 Each Tablet, 1 EACH PO MON,WED,FRI, (Reported) Entered as Reported by: DELIA VENCES on 05/06/14930 Tamsulosin Hcl (Flomax) 0.4 Mg Cap, 0.4 MG PO DAILY, (Reported) Entered as Reported by: PATRICIA SHAW on 01/18/12 0534 Review of Systems Review of Systems Constitutional: no symptoms reported Eyes: No Symptoms Reported Ears, Nose, Mouth, Throat: no symptoms reported Respiratory: no symptoms reported Cardiovascular: no symptoms reported Gastrointestinal: no symptoms reported Skin: other (abrasion) Psychiatric/Neurological: No Symptoms Reported Past Olfrrnr-Oryerd-Lfwblr Hx Immunizations Up To Date Tetanus Booster (TDap): Less than 5yrs PED Vaccines UTD: No Seasonal Allergies Seasonal Allergies: No Past Medical History Surgeries: Yes Respiratory: No Cardiac: Yes High Cholesterol, Hypertension Neurological: Yes Dementia Reproductive Disorders: No Female Reproductive Disorders: Denies Sexually Transmitted Disease: No HIV/AIDS: No Genitourinary: No Gastrointestinal: Yes Chronic Constipation Musculoskeletal: Yes (ARTHRITIS/GOUT) Arthritis, Gout Endocrine: Yes (HYPOGLYCEMIA) HEENT: No Cancer: No Psychosocial: Yes (PARANOID SCHIZO) Anxiety, Schizophrenia, Depression Integumentary: No Blood Disorders: No Adverse Reaction/Blood Tranf: No Family Medical History Patient reports no known family medical history. Physical Exam Vital Signs Vital Signs - First Documented 08/20/22 12:22 Temp 36.6 Pulse 83 Resp 14 B/P (MAP) 101/64 (76) Capillary Refill : Height, Weight, BMI Height: 5'3" Weight: 150lbs. 0.0oz. 68.194392sz; 28.51 BMI Method:Estimated General Appearance: WD/WN, no apparent distress HEENT: PERRL/EOMI, normal ENT inspection, TMs normal, pharynx normal Neck: non-tender, full range of motion, supple, normal inspection Cardiovascular: regular rate, rhythm, no edema, no gallop, no JVD, no murmur Respiratory: chest non-tender, lungs clear, normal breath sounds, no respiratory distress, no accessory muscle use Gastrointestinal: normal bowel sounds, non tender, soft Back: normal inspection, no CVA tenderness, no vertebral tenderness Extremities: normal range of motion, non-tender, normal inspection, normal capillary refill Neurologic/Psychiatric: no motor/sensory deficits, normal mood/affect Skin: other (superficial abrasion noted to the right forehead) Melvina Coma Score Best Eye Response: (4) Open Spontaneously Best Verbal Response: (4) Confused Conversation Best Motor Response: (6) Obeys Commands Melvina Total: 14 Progress/Results/Core Measures Results/Orders My Orders Orders - ROMERO LOBO APRN Ct Head/Cervical Spine Wo (08/20/22 12:27) Vital Signs/I&O 08/20/22 12:22 Temp 36.6 Pulse 83 Resp 14 B/P (MAP) 101/64 (76) Progress Progress Note : Progress Note Patient is nontoxic and well hydrated on exam. No focal neurologic deficits noted on exam. Patient is confused but is at baseline per her daughter who is at bedside. Patient states her only pain is to her forehead in the area of her superficial abrasion. Primary and secondary surveys are otherwise grossly normal with no other obvious trauma. CT of the head and c-spine obtained that are acutely negative. Will d/c home with recs for supportive care and follow-up as needed. Return precautions for urgent symptomology discussed. Daughter verbalized understanding. Departure Impression Primary Impression: Minor head injury without loss of consciousness Qualified Codes: S09.90XA - Unspecified injury of head, initial encounter Additional Impressions: Forehead abrasion Qualified Codes: S00.81XA - Abrasion of other part of head, initial encounter Fall Qualified Codes: W19.XXXA - Unspecified fall, initial encounter Disposition: 01 HOME, SELF-CARE Condition: Stable Departure-Patient Inst. Decision time for Depature: 13:20 Referrals: LOVE TONEY MD (PCP/Family) Primary Care Physician Patient Instructions: Minor Head Injury (DC), Abrasions ED ROMERO LOBO APRN Aug 20, 2022 12:28
--- NOTE | 2022-08-20 12:54 | Diagnostic Imaging Report ---
PROCEDURE: CT head and CT cervical spine without contrast. TECHNIQUE: Multiple contiguous axial images were obtained through the brain and cervical spine without the use of intravenous contrast. Sagittal and coronal reformations through the cervical spine were then performed. Auto Exposure Controls were utilized during the CT exam to meet ALARA standards for radiation dose reduction. INDICATION: Head and neck injury with pain. COMPARISON: 01/03/2017. DISCUSSION: Head: No adverse interval change. White matter hypoattenuation is nonspecific though not greater than expected for age related chronic small vessel ischemic disease, stable. No acute intracranial hemorrhage, mass, midline shift or hydrocephalus. The orbits, sinuses, mastoid air cells, and calvarium are unremarkable. Cervical spine: Advanced degenerative disc disease at C5-C6 is stable. Moderate facet arthropathy is noted diffusely. No acute fracture or subluxation. Chronic grade 1 anterolisthesis of C2 on C3 is stable. Soft tissues are unremarkable. IMPRESSION: 1. Negative head CT. 2. No acute abnormality within the cervical spine. Dictated by: Dictated on workstation # [id number]
[2022-08-20 13:27] VITALS: BP 100/48
== END 2022-08-20 13:34 | disposition home or self-care (01) ==
LOC: EDUNIT# 12:20 → ER 12:21
DX: S09.90XA Unspecified injury of head, initial encounter (principal); S00.81XA Abrasion of other part of head, initial encounter; W05.0XXA Fall from non-moving wheelchair, initial encounter
CPT/HCPCS: 70450; 72125

== ENCOUNTER → 2022-11-24 | Outpatient (CLI) | payer MEDICARE, MEDICAID ==
--- NOTE | 2022-11-24 12:12 | Diagnostic Imaging Report ---
INDICATION: Dysphagia. TECHNIQUE: The procedure was performed in conjunction with Speech Pathology. Video fluoroscopy was performed during the swallowing of barium at multiple consistencies. A total of 1.1 minutes of fluoroscopic time was utilized. FINDINGS: Patient ingested thin, nectar, applesauce, as well as solid consistency. Patient also ingested honey-thick consistency. There is early spillover with all consistencies. There is laryngeal penetration during the swallowing of thin and nectar consistency. Honey-thick as well as semi-solid and solid consistencies are without penetration or aspiration. There is mild residue noted which would clear with repeated swallows. IMPRESSION: Penetration during the swallowing of thin and nectar consistency. No aspiration was observed. Dictated by: Dictated on workstation # [id number]
== END ==
LOC: RAD 10:07
PROVIDERS: ATTEND Physician Assistant
DX: R13.10 Dysphagia, unspecified (principal)
CPT/HCPCS: 74230